=== PATIENT | female | born 1990 | race Caucasian/White ===

== ENCOUNTER 2017-03-27 15:28 | Emergency (ER) | payer BC, OTHER ==
[~2017-03-27] VITALS: Ht 175.3 cm; Wt 66.5 kg
[~2017-03-27 15:28] MED LIST: FAMO20TA7 PO; FLUD0.1T PO; HYDR5TAB2 PO
[2017-03-27] MEDS ORDERED: ONDANSETRON 2MG/ML, 2ML IVPush ONE (16:00)
[2017-03-27] MEDS ORDERED: SODIUM CHLORIDE FLUSH 10ML SYR IVF ONE (16:00)
[2017-03-27 16:11] LABS: HEMATOCRIT 42.8 % (34.6-47.8); HEMOGLOBIN 14.3 g/dL (11.7-16.4); WHITE BLOOD COUNT 9.9 x10^3/uL (3.4-10)
[2017-03-27 16:23] LABS: ASPARTATE AMINO TRANSFERASE 12 U/L (15-37); BLOOD UREA NITROGEN 8 mg/dL (7-18)
[2017-03-27] MEDS ORDERED: ONDANSETRON 2MG/ML, 2ML ONE (16:29)
[2017-03-27 16:54] LABS: PATH.CAST-FLAG NOT PRESENT; SPERM-FLAG NOT PRESENT; SRC-FLAG NOT PRESENT; XTAL-FLAG NOT PRESENT; YLC-FLAG NOT PRESENT
[2017-03-27 18:47] VITALS: BP 120/75
== END 2017-03-27 18:56 | disposition home or self-care (01) ==
LOC: ED 18:35
DX: N30.01 Acute cystitis with hematuria (principal); Z90.49 Acquired absence of other specified parts of digestive tract
CPT/HCPCS: 36415; 80053; 81001; 82533; 83690; 84703; 85025; 87086; 93005; 96374; 99285; J2405

== ENCOUNTER 2017-10-06 12:39 | Emergency (ER) | payer OTHER ==
[~2017-10-06] VITALS: Ht 175.3 cm; Wt 69.9 kg
[2017-10-06] MEDS ORDERED: SODIUM CHLORIDE 0.9% 1,000ML IVBOLUS ONE (13:30)
[2017-10-06] MEDS ORDERED: SODIUM CHLORIDE FLUSH 10ML SYR IVF ONE (13:30)
[2017-10-06] MEDS ORDERED: LOPERAMIDE 2 MG CAPSULE PO ONE (13:30)
[2017-10-06 13:33] LABS: BASOPHILS # (AUTO) 0.02 x10^3/uL (0-0.1); BASOPHILS % (AUTO) 0 % (0-1); EOSINOPHILS # (AUTO) 0.17 x10^3/uL (0-0.4); EOSINOPHILS % (AUTO) 3 % (1-7); LYMPHOCYTES # (AUTO) 0.86 x10^3/uL (1-3.4); LYMPHOCYTES % (AUTO) 14 % (22-44); MD NO; MEAN CORPUSCULAR HEMOGLOBIN 29.7 pg (27.0-34.8); MEAN CORPUSCULAR HGB CONC 33.8 g/dL (32.4-35.8); MEAN CORPUSCULAR VOLUME 88.1 fL (80-100); MONOCYTES # (AUTO) 0.68 x10^3/uL (0.2-0.8); MONOCYTES % (AUTO) 11 % (2-9); NEUTROPHILS # (AUTO) 4.48 x10^3/uL (1.8-6.8); NEUTROPHILS % (AUTO) 72 % (42-75); PLATELET COUNT 193 x10^3/uL (130-400); RED BLOOD COUNT 4.88 x10^6/uL (3.82-5.3); RED CELL DISTRIBUTION WIDTH 13.9 % (9.6-15.2)
[2017-10-06 13:43] LABS: ALBUMIN 3.9 g/dL (3.4-5.0); ANION GAP 7 mmol/L (5-15); CALCIUM 8.8 mg/dL (8.5-10.1); CHLORIDE 108 mmol/L (98-107); CREATININE 0.85 mg/dL (0.55-1.02)
[2017-10-06] MEDS ORDERED: LOPERAMIDE 2 MG CAPSULE ONE (13:46)
[2017-10-06 13:53] VITALS: BP 118/75
== END 2017-10-06 14:21 | disposition home or self-care (01) ==
LOC: ED 13:43
DX: R19.7 Diarrhea, unspecified (principal); R10.11 Right upper quadrant pain; Z90.49 Acquired absence of other specified parts of digestive tract; E27.40 Unspecified adrenocortical insufficiency
CPT/HCPCS: 36415; 80048; 82040; 85025; 99284

== ENCOUNTER 2018-03-12 07:50 | Emergency (ER) | payer OTHER ==
[~2018-03-12] VITALS: Ht 175.3 cm; Wt 72.0 kg
[2018-03-12] MEDS ORDERED: ONDANSETRON 2MG/ML, 2ML IVPush ONE (08:30)
[2018-03-12] MEDS ORDERED: SODIUM CHLORIDE 0.9% 1,000ML IVBOLUS ONE ×2 (08:30→10:30)
[2018-03-12] MEDS ORDERED: SODIUM CHLORIDE FLUSH 10ML SYR IVF ONE (08:30)
[2018-03-12] MEDS ORDERED: ONDANSETRON 2MG/ML, 2ML ONE (08:38)
[2018-03-12 08:42] LABS: BASOPHILS # (AUTO) 0.03 x10^3/uL (0-0.1); BASOPHILS % (AUTO) 1 % (0-1); EOSINOPHILS # (AUTO) 0.14 x10^3/uL (0-0.4); EOSINOPHILS % (AUTO) 2 % (1-7); LYMPHOCYTES # (AUTO) 1.16 x10^3/uL (1-3.4); LYMPHOCYTES % (AUTO) 21 % (22-44); MD NO; MEAN CORPUSCULAR HEMOGLOBIN 29.1 pg (27.0-34.8); MEAN CORPUSCULAR HGB CONC 33.2 g/dL (32.4-35.8); MEAN CORPUSCULAR VOLUME 87.4 fL (80-100); MEAN PLATELET VOLUME 9.2 fL (7.4-10.4); MONOCYTES # (AUTO) 0.48 x10^3/uL (0.2-0.8); MONOCYTES % (AUTO) 9 % (2-9); NEUTROPHILS # (AUTO) 3.82 x10^3/uL (1.8-6.8); NEUTROPHILS % (AUTO) 68 % (42-75); PLATELET COUNT 212 x10^3/uL (130-400); RED BLOOD COUNT 4.85 x10^6/uL (3.82-5.3); RED CELL DISTRIBUTION WIDTH 13.8 % (9.6-15.2)
[2018-03-12 08:45] LABS: ALBUMIN 3.8 g/dL (3.4-5.0); ANION GAP 5 mmol/L (5-15); CALCIUM 8.6 mg/dL (8.5-10.1); CHLORIDE 108 mmol/L (98-107)
[2018-03-12 09:48] LABS: MICROSCOPIC NOT IND
[2018-03-12 09:53] LABS: CULTURE INDICATED? NO
[2018-03-12] MEDS ORDERED: HYDROCORTISONE 100 MG INJ. IVPush ONE (10:30)
[2018-03-12 11:42] VITALS: BP 112/58
== END 2018-03-12 11:51 | disposition home or self-care (01) ==
LOC: ED 09:08
DX: E27.2 Addisonian crisis (principal); I10 Essential (primary) hypertension; E27.1 Primary adrenocortical insufficiency; R11.2 Nausea with vomiting, unspecified
CPT/HCPCS: 36415; 80048; 81003; 82040; 82533; 84703; 85025; 93005; 96361; 96374; 96375; 99285; J1720; J2405; J7030

== ENCOUNTER 2018-09-27 06:27 | Emergency (ER) | payer OTHER ==
[~2018-09-27] VITALS: Ht 175.3 cm; Wt 76.2 kg
[~2018-09-27 06:27] MED LIST changes: -HYDR5TAB2 PO; +HYDR5TAB7 PO
--- NOTE | 2018-09-27 06:44 | NUR ---
pt to room at this time
--- NOTE | 2018-09-27 07:15 | NUR ---
27 Y/O FEMALE PRESENTS TO ED WITH C/O RUQ ABDOMINAL PAIN. PER PT "I HAVE SOME ABDOMINAL PAIN IN THE UPPER RIGHT SIDE. LITTLE IN THE MIDDLE. IT STARTED YESTERDAY AT 3PM. I'VE HAD NAUSEA, NO VOMITING." NO C/O CP, TRAUMA, SYNCOPE, SOB, D/V. PT PLACED ON CONT PULSE OX,NIBP. UA SENT TO LAB.
[2018-09-27 07:24] LABS: BASOPHILS # (AUTO) 0.07 x10^3/uL (0-0.1); BASOPHILS % (AUTO) 1 % (0-1); EOSINOPHILS # (AUTO) 0.09 x10^3/uL (0-0.4); EOSINOPHILS % (AUTO) 1 % (1-7); LYMPHOCYTES # (AUTO) 1.35 x10^3/uL (1-3.4); LYMPHOCYTES % (AUTO) 18 % (22-44); MD NO; MEAN CORPUSCULAR HEMOGLOBIN 29.7 pg (27.0-34.8); MEAN CORPUSCULAR HGB CONC 33.4 g/dL (32.4-35.8); MEAN CORPUSCULAR VOLUME 88.8 fL (80-100); MEAN PLATELET VOLUME 9.2 fL (7.4-10.4); MONOCYTES # (AUTO) 0.61 x10^3/uL (0.2-0.8); MONOCYTES % (AUTO) 8 % (2-9); NEUTROPHILS % (AUTO) 72 % (42-75); PLATELET COUNT 224 x10^3/uL (130-400); RED BLOOD COUNT 4.89 x10^6/uL (3.82-5.3); RED CELL DISTRIBUTION WIDTH 13.7 % (9.6-15.2)
[2018-09-27 07:37] LABS: ALANINE AMINOTRANSFERASE 18 U/L (12-78); ALBUMIN 3.7 g/dL (3.4-5.0); ANION GAP 5 mmol/L (5-15); CALCIUM 8.7 mg/dL (8.5-10.1); CHLORIDE 109 mmol/L (98-107); CREATININE 0.81 mg/dL (0.55-1.02)
[2018-09-27 07:39] LABS: ALKALINE PHOSPHATASE 49 U/L (45-117); BILIRUBIN,TOTAL 0.4 mg/dL (0.2-1.0); TOTAL PROTEIN 7.1 g/dL (6.4-8.2)
[2018-09-27 07:44] LABS: MICROSCOPIC NOT IND
[2018-09-27 07:54] LABS: CULTURE INDICATED? NO
--- NOTE | 2018-09-27 07:55 | NUR ---
PT AMBULATORY WITH STEADY GAIT TO BATHROOM.
--- NOTE | 2018-09-27 08:56 | NUR ---
PT RESTING ON GURNEY. NO ACUTE DISTRESS NOTED. NO NEEDS REQUESTED AT THIS TIME. AWAITING LABS.
[2018-09-27 08:57] VITALS: BP 96/54
--- NOTE | 2018-09-27 09:49 | NUR ---
BEDSIDE REPORT TO JONH HOPSON.
[2018-09-27] MEDS ORDERED: MAALOX/HYOSCYAMINE/LIDOCAINE 45 ML BTL ONE (09:52)
[2018-09-27] MEDS ORDERED: MAALOX/HYOSCYAMINE/LIDOCAINE 45 ML BTL PO ONE (10:00)
== END 2018-09-27 10:49 | disposition home or self-care (01) ==
LOC: ED 10:13
DX: R10.13 Epigastric pain (principal); R10.11 Right upper quadrant pain; R63.0 Anorexia; R11.0 Nausea; I10 Essential (primary) hypertension; E27.9 Disorder of adrenal gland, unspecified; Z87.891 Personal history of nicotine dependence
CPT/HCPCS: 36415; 76700; 80053; 81003; 82533; 83690; 85025; 99284

== ENCOUNTER 2018-12-04 10:43 | Emergency (ER) | payer OTHER ==
[~2018-12-04] VITALS: Ht 175.3 cm; Wt 76.0 kg
[2018-12-04 10:47] VITALS: BP 113/69
[2018-12-04 11:23] LABS: ALBUMIN 4.1 g/dL (3.4-5.0); CALCIUM 9.2 mg/dL (8.5-10.1); CREATININE 0.78 mg/dL (0.55-1.02)
[2018-12-04 11:25] LABS: BASOPHILS # (AUTO) 0.04 x10^3/uL (0-0.1); BASOPHILS % (AUTO) 0 % (0-1); EOSINOPHILS # (AUTO) 0.07 x10^3/uL (0-0.4); EOSINOPHILS % (AUTO) 1 % (1-7); LYMPHOCYTES % (AUTO) 18 % (22-44); MD NO; MEAN CORPUSCULAR HGB CONC 33.9 g/dL (32.4-35.8); MEAN CORPUSCULAR VOLUME 88.3 fL (80-100); MONOCYTES # (AUTO) 0.51 x10^3/uL (0.2-0.8); MONOCYTES % (AUTO) 6 % (2-9); NEUTROPHILS # (AUTO) 6.07 x10^3/uL (1.8-6.8); NEUTROPHILS % (AUTO) 74 % (42-75); PLATELET COUNT 255 x10^3/uL (130-400); RED CELL DISTRIBUTION WIDTH 13.8 % (9.6-15.2)
[2018-12-04 11:31] LABS: ANION GAP 4 mmol/L (5-15); CHLORIDE 108 mmol/L (98-107)
--- NOTE | 2018-12-04 12:02 | NUR ---
FROM LOBBY TO ROOM AT THIS TIME
== END 2018-12-04 12:34 | disposition home or self-care (01) ==
LOC: ED 12:31
DX: R07.89 Other chest pain (principal); I10 Essential (primary) hypertension; Z87.891 Personal history of nicotine dependence
CPT/HCPCS: 36415; 71046; 80048; 82040; 85025; 93005; 99284

== ENCOUNTER 2019-02-04 09:45 | Emergency (ER) | payer OTHER ==
[~2019-02-04] VITALS: Ht 175.3 cm; Wt 75.6 kg
[2019-02-04] MEDS ORDERED: HYDR20TA PO (10:01)
--- NOTE | 2019-02-04 10:03 | NUR ---
PT TO ED FOR N/V, LOWER BACK PAIN, BILAT LOWER QUADRANT ABD PAIN AND ABD BLOATING X APPROX 1 WEEK. PT STATES HOME ZOFRAN AND PHENERGAN ARE NOT HELPING. PT STATES HAS VOMITED ONCE TODAY. PT CONNECTED TO MONITORS. VSS. ANTHONY Glover TO BS FOR ASSESSMENT. AWAITING ORDERS AT THIS TIME.
[2019-02-04] MEDS ORDERED: ONDANSETRON 2MG/ML, 2ML ONE (10:29)
[2019-02-04] MEDS ORDERED: SODIUM CHLORIDE 0.9% 1,000ML IVBOLUS ONE (10:30)
[2019-02-04] MEDS ORDERED: MORPHINE SULFATE 4 MG/ML, 1ML IVPush PRN (10:30)
[2019-02-04] MEDS ORDERED: ONDANSETRON 2MG/ML, 2ML IVPush ONE (10:30)
--- NOTE | 2019-02-04 10:34 | NUR ---
PT RESTING IN ROOM WITH FRIEND AT BS. NO NEEDS EXPRESSED. VSS. IV ESTABLISHED ADN LABS DRAWN. UA COLLECTED AND SENT. AWAITING RESULTS.
[2019-02-04 10:47] LABS: MICROSCOPIC AUTO
[2019-02-04 10:48] LABS: CULTURE INDICATED? NO
[2019-02-04 10:53] LABS: BASOPHILS # (AUTO) 0.02 x10^3/uL (0-0.1); BASOPHILS % (AUTO) 1 % (0-1); EOSINOPHILS # (AUTO) 0.09 x10^3/uL (0-0.4); EOSINOPHILS % (AUTO) 2 % (1-7); LYMPHOCYTES # (AUTO) 1.05 x10^3/uL (1-3.4); LYMPHOCYTES % (AUTO) 22 % (22-44); MD NO; MEAN CORPUSCULAR HEMOGLOBIN 29.2 pg (27.0-34.8); MEAN CORPUSCULAR HGB CONC 32.5 g/dL (32.4-35.8); MEAN PLATELET VOLUME 9.3 fL (7.4-10.4); MONOCYTES # (AUTO) 0.44 x10^3/uL (0.2-0.8); MONOCYTES % (AUTO) 9 % (2-9); NEUTROPHILS # (AUTO) 3.21 x10^3/uL (1.8-6.8); NEUTROPHILS % (AUTO) 67 % (42-75); PLATELET COUNT 212 x10^3/uL (130-400); RED BLOOD COUNT 4.75 x10^6/uL (3.82-5.3); RED CELL DISTRIBUTION WIDTH 13.9 % (9.6-15.2)
--- NOTE | 2019-02-04 10:55 | NUR ---
PT RESTING IN ROOM WTIH FRIEND AT BS. VSS. WARM BLANKET PROVIDED FOR COMFORT. NO OTHER NEEDS EXPRESSED. IVF BOLUS COMPLETED AT THIS TIME. AWAITING LAB RESULTS.
[2019-02-04 11:04] LABS: ALBUMIN 3.8 g/dL (3.4-5.0); ANION GAP 4 mmol/L (5-15); CALCIUM 8.7 mg/dL (8.5-10.1); CHLORIDE 111 mmol/L (98-107); CREATININE 0.72 mg/dL (0.55-1.02)
--- NOTE | 2019-02-04 11:16 | NUR ---
pt reports decrease in nausea at this time. vss. no needs expressed. call light within reach.
--- NOTE | 2019-02-04 11:21 | NUR ---
all results back at this time. chart up for recheck.
--- NOTE | 2019-02-04 11:25 | NUR ---
new orders for medications and ct received at this time.
[2019-02-04] MEDS ORDERED: MAALOX/HYOSCYAMINE/LIDOCAINE 45 ML BTL ONE (11:26)
--- NOTE | 2019-02-04 11:29 | NUR ---
minerva Suraez to bs to update on results and poc. pt medicated per sep. vss. no needs expressed. awaiting ct.
[2019-02-04] MEDS ORDERED: MAALOX/HYOSCYAMINE/LIDOCAINE 45 ML BTL PO ONE (11:30)
--- NOTE | 2019-02-04 11:35 | NUR ---
pt to ct.
[2019-02-04] MEDS ORDERED: OMNIPAQUE 350 MG/ML, 100ML BOTTLE ONE (11:59)
--- NOTE | 2019-02-04 12:18 | NUR ---
all results back at this time. chart up for recheck.
[2019-02-04 12:20] VITALS: BP 100/66
== END 2019-02-04 13:08 | disposition home or self-care (01) ==
LOC: ED 10:35
DX: K52.9 Noninfective gastroenteritis and colitis, unspecified (principal); Z86.39 Personal history of other endocrine, nutritional and metabolic disease; Z90.710 Acquired absence of both cervix and uterus; Z88.1 Allergy status to other antibiotic agents; Z79.899 Other long term (current) drug therapy; Z90.89 Acquired absence of other organs
CPT/HCPCS: 36415; 74177; 80048; 81001; 82040; 82533; 85025; 96374; 99284; J2405; J7030; Q9967

== ENCOUNTER 2019-10-01 07:09 | Emergency (ER) | payer OTHER ==
[~2019-10-01] VITALS: Ht 175.3 cm; Wt 77.2 kg
[~2019-10-01 07:09] MED LIST changes: +HYDR20TA PO
[2019-10-01 07:11] VITALS: BP 127/78
[2019-10-01 08:19] LABS: BASOPHILS # (AUTO) 0.02 x10^3/uL (0-0.1); BASOPHILS % (AUTO) 0 % (0-1); EOSINOPHILS # (AUTO) 0.09 x10^3/uL (0-0.4); EOSINOPHILS % (AUTO) 2 % (1-7); LYMPHOCYTES # (AUTO) 1.28 x10^3/uL (1-3.4); LYMPHOCYTES % (AUTO) 22 % (22-44); MD NO; MEAN CORPUSCULAR HEMOGLOBIN 30.3 pg (27.0-34.8); MEAN CORPUSCULAR HGB CONC 33.6 g/dL (32.4-35.8); MEAN PLATELET VOLUME 8.6 fL (7.4-10.4); MONOCYTES % (AUTO) 9 % (2-9); NEUTROPHILS # (AUTO) 4.04 x10^3/uL (1.8-6.8); NEUTROPHILS % (AUTO) 68 % (42-75); PLATELET COUNT 231 x10^3/uL (130-400); RED BLOOD COUNT 4.98 x10^6/uL (3.82-5.3); RED CELL DISTRIBUTION WIDTH 13.6 % (9.6-15.2)
[2019-10-01 08:29] LABS: ALBUMIN 3.9 g/dL (3.4-5.0); ANION GAP 4 mmol/L (5-15); CALCIUM 8.9 mg/dL (8.5-10.1); CHLORIDE 108 mmol/L (98-107); CREATININE 0.86 mg/dL (0.55-1.02)
--- NOTE | 2019-10-01 08:48 | NUR ---
REPORT FROM JONH CROSS. PT CARE RESPONSIBILITIES ASSUMED.
[2019-10-01 09:07] LABS: TROPONIN I < 0.015 ng/mL (0.000-0.045)
== END 2019-10-01 11:16 | disposition home or self-care (01) ==
LOC: ED 08:26
DX: R07.89 Other chest pain (principal); I10 Essential (primary) hypertension; Z90.89 Acquired absence of other organs; Z90.710 Acquired absence of both cervix and uterus
CPT/HCPCS: 36415; 71046; 80048; 82040; 84484; 85025; 93005; 99285